=== PATIENT | female | born 1945 | race Caucasian/White ===

== ENCOUNTER 2016-09-05 04:36 | Emergency (ER) | payer MEDICARE ==
[~2016-09-05 04:36] MED LIST: ESTRACE1 MG PO; FENOFIBRATE134 MG PO; KLOR-CON M2020 MEQ PO; METOPROLOL TART25 MG PO; PRILOSEC DPS20 MG PO; REFRESH CLASSI1 EACH OU; ZYRTEC10 MG PO
--- NOTE | 2016-09-05 19:03 | ER ---
ADMIT: 09/05/2016 RM/LOC: ER [facility] MR#: [id number] [id number] CHRIS DAVID [address] [place] [address] Emergency Room Report SEX: F AGE: 70 : 1945 DATE: 09/05/2016 The patient is a 70-year-old female, transported by [email or web address] after having an episode of upper epigastric abdominal and left shoulder discomfort associated with lightheadedness. She readily admits to eructations with improvement, has had some mild loose stools the past 2 weeks and lightheadedness more recently. Denies any melanotic stools, vomiting, fevers, chills, or cough. Exam remarkable for anxious appearing, nontoxic, afebrile female, nontender to palpation. EKG sinus rhythm without ST-T or Q-wave change. Chest x-ray negative. Normal CBC, CRP, lipase, CMP, troponin, D-dimer, and BNP. Chest x-ray negative. The patient given 2 L of fluid. Protonix [address] tested well. Slight orthostasis responded to fluids. Discharged with Protonix 40 mg daily #30. Follow up Dr. Enciso this week. Kevan Edwards MD/ scar JOB #: [id number] CC: Kevan Edwards MD, Attending Physician Vlad Enciso MD, Family Physician
== END 2016-09-05 08:07 | disposition home or self-care (01) ==
LOC: ER 04:36
DX: K29.70 Gastritis, unspecified, without bleeding (principal); I95.1 Orthostatic hypotension; I10 Essential (primary) hypertension; E78.5 Hyperlipidemia, unspecified; Z90.710 Acquired absence of both cervix and uterus; Z98.890 Other specified postprocedural states; Z88.1 Allergy status to other antibiotic agents; Z79.82 Long term (current) use of aspirin; Z79.899 Other long term (current) drug therapy